=== PATIENT | male | born 1955 | race Hispanic/Latino ===

== ENCOUNTER 2019-05-17 08:33 | Day surgery (SDC) | payer OTHER ==
[2019-05-17] MEDS ORDERED: SODIUM CHLORIDE 0.9% 1000 ML 1,000 ML IV SCH (10:00)
[2019-05-17] MEDS ORDERED: PROPOFOL 200 MG/20 ML VIAL IV ONE ×2 (10:25)
--- NOTE | 2019-05-17 10:59 | Procedure Note ---
Date of procedure: 05/17/19 Pre-op diagnosis: Colon Polyp Screening Post-op diagnosis: other (Multiple,Small Recto-Sigmoid Polyps/ Minor,Left Colon Diverticuli/Mild to Moderate Internal Hemorrhoid) Procedure: Colonoscopy with Cold Snare Polypectomyand Cold Biopsy Anesthesia: MAC Surgeon: KELLY HENDERSON Estimated blood loss: minimal Pathology: list Specimen disposition: to lab Condition: stable Disposition: same day (Avoid aspirin and NSAID for 4 days, otherwise resume home medication. Encourage fiber intake and follow up in 1 to 2 weeks ([phone]).)
[2019-05-17 11:35] VITALS: BP 142/76
--- NOTE | 2019-05-17 11:38 | Operative Report ---
PROCEDURE: Colonoscopy with cold snare polypectomy and cold biopsy. INDICATIONS: This is a 63-year-old slightly obese white male in otherwise good health, who had a colonoscopy done as part of colon polyp screening. He states that his last colonoscopy was done several years ago when he was noted to have 1 polyp at that time. DESCRIPTION OF PROCEDURE: The procedure was done after getting informed consent with MAC anesthesia. Initial rectal exam was unremarkable. Instrument was passed through the rectum and onto the cecum, which was identified with ileocecal valve and the appendiceal orifice. Visualization was fair. The cecum was also looked at in the retroverted view. No additional pathology was noted. The cecum, ascending colon and most of the transverse colon showed normal mucosa. There were a few minor diverticula noted in the distal transverse and in the left colon. In the rectosigmoid area, there were 4 polyps, 3 of which were about 7 mm in diameter, removed by cold biopsy and may have been hyperplastic in type. There was an additional polyp, which was 8-9 mm in diameter and removed by cold snare polypectomy and retrieved. There was minimal bleeding from the biopsy sites. No complications associated with the procedure. The rectum showed [id number] internal hemorrhoid on the retroverted view. ASSESSMENT: Colon polyp screening, multiple small rectosigmoid polyps. Minor diverticula, [id number] internal hemorrhoid. There was minimal bleeding from the biopsy sites. No complications associated with the procedure. The patient will be asked to avoid aspirin and aspirin-related products for the next few days. Otherwise, resume home medication and follow up in the office in 1-2 weeks' time. The procedure was done in the GI lab with assistance of the GI lab team, which included Samra BRYAN, and Sadi rogers, and the assistance of anesthesia. JOB# [id number] GREGOR/LIZ
[2019-05-17] MEDS ORDERED: WATER FOR IRRIG STERILE 250 ML BOTTLE IR ONE (12:22)
[2019-05-17] MEDS ORDERED: LIDOCAINE MPF (2%) 20 MG/1 ML VIAL 5 ML ONE (12:30)
== END 2019-05-17 11:37 | disposition home or self-care (01) ==
LOC: GIO 08:33
DX: Z12.11 Encounter for screening for malignant neoplasm of colon (principal); D12.7 Benign neoplasm of rectosigmoid junction; K57.30 Diverticulosis of large intestine without perforation or abscess without bleeding; K64.8 Other hemorrhoids; Z86.010 Personal history of colon polyps
CPT/HCPCS: 45380; 45385; 88305; J2704